=== PATIENT | female | born 1945 | race Caucasian/White ===

== ENCOUNTER 2017-02-17 18:16 | Emergency (ER) | payer OTHER ==
[~2017-02-17] VITALS: Ht 170.2 cm; Wt 77.2 kg
[~2017-02-17 18:16] MED LIST: ASPI-650 PO; FLUT1DIS3 INH; GUAI100L11 PO; TIOT18CA INH
[2017-02-17 19:18] LABS: HEMATOCRIT 43.4 % (34.6-47.8); HEMOGLOBIN 14.7 g/dL (11.7-16.4); WHITE BLOOD COUNT 12.3 x10^3/uL (3.4-10)
[2017-02-17 19:30] LABS: BLOOD UREA NITROGEN 22 mg/dL (7-18)
[2017-02-17 20:47] VITALS: BP 120/47
== END 2017-02-17 20:50 | disposition home or self-care (01) ==
LOC: ED 18:44
DX: J44.9 Chronic obstructive pulmonary disease, unspecified (principal)
CPT/HCPCS: 36415; 71020; 80048; 82040; 85025; 93005; 99285

== ENCOUNTER 2017-12-15 07:03 | Emergency (ER) | payer MEDICARE, OTHER ==
[~2017-12-15] VITALS: Ht 170.2 cm; Wt 76.2 kg
[2017-12-15 07:06] VITALS: BP 162/78
== END 2017-12-15 09:11 | disposition home or self-care (01) ==
LOC: ED 08:51
DX: J18.9 Pneumonia, unspecified organism (principal); J44.9 Chronic obstructive pulmonary disease, unspecified; I48.91 Unspecified atrial fibrillation; I34.1 Nonrheumatic mitral (valve) prolapse
CPT/HCPCS: 71046; 99284

== ENCOUNTER 2020-11-10 05:44 | Emergency (ER) | payer OTHER ==
[~2020-11-10] VITALS: Ht 167.6 cm; Wt 80.0 kg
[~2020-11-10 05:44] MED LIST changes: -ASPI-650 PO; +ASPI325T20 PO
[2020-11-10 06:57] LABS: BASOPHILS % (AUTO) 1 % (0-1); EOSINOPHILS % (AUTO) 3 % (1-7); LYMPHOCYTES % (AUTO) 11 % (22-44); MEAN CORPUSCULAR HEMOGLOBIN 28.5 pg (27.0-34.8); MEAN CORPUSCULAR HGB CONC 33.1 g/dL (32.4-35.8); MEAN PLATELET VOLUME 7.4 fL (7.4-10.4); MONOCYTES % (AUTO) 9 % (2-9); NEUTROPHILS % (AUTO) 76 % (42-75); PLATELET COUNT 346 x10^3/uL (130-400); RED CELL DISTRIBUTION WIDTH 14.5 % (9.6-15.2)
[2020-11-10 07:05] LABS: ALBUMIN 2.9 g/dL (3.4-5.0); ANION GAP 6 mmol/L (5-15); CALCIUM 9.4 mg/dL (8.5-10.1); CHLORIDE 101 mmol/L (98-107)
[2020-11-10 07:11] LABS: CREATININE 0.63 mg/dL (0.55-1.02); TROPONIN I < 0.015 ng/mL (0.000-0.045)
--- NOTE | 2020-11-10 07:23 | NUR ---
THIS IS A 74 YEAR OLD FEMALE WHO WAS BIB AMBULANCE DUE TO COUGHING UP BLOOD. PT HAD RIGHT LWOER LUNG RESECTION X 5 DAYS AGO. PT IS ON OXGYEN AT 6LNC, 87% ON 4LNC AT 87%. PLACED PT ON REPORT SPECIALIST , HX OF COPD AND AFIB, CONTINOUS SP02 AND CYCLE VS. DISCUSSED PLAN OF CARE
[2020-11-10 07:31] LABS: INTERNATIONAL NORMALIZED RATIO 0.99 (0.93-1.1); PROTHROMBIN TIME 10.6 Seconds (9.6-11.5)
--- NOTE | 2020-11-10 08:02 | NUR ---
NO IV FOR CTA, PLACING IV IN A FEW MINUTES
[2020-11-10] MEDS ORDERED: OMNIPAQUE 350 MG/ML, 75ML BOTTLE ONE (08:15)
--- NOTE | 2020-11-10 09:43 | NUR ---
PT RESTING, INCONTIENT OF URINE, CLEANED WELL. VERBALIZED NO ADDITIONAL NEEDS AT THIS TIME
[2020-11-10] MEDS ORDERED: ONDANSETRON 2MG/ML, 2ML ONE (10:21)
[2020-11-10] MEDS ORDERED: ONDANSETRON 2MG/ML, 2ML IVPush ONE (10:30)
--- NOTE | 2020-11-10 10:46 | NUR ---
DISCHARGE UP, PT WOULD LIKE TO REST A BIT BEFORE ATTEMPTING TO AMBULATE.
[2020-11-10 11:49] VITALS: BP 105/55
--- NOTE | 2020-11-10 11:53 | NUR ---
JOYA RIZO DAUGHTER PICKED UP WITH OXYGEN TANK. DISCHARGE REVIEWED
== END 2020-11-10 12:01 | disposition home or self-care (01) ==
LOC: ED 10:24
DX: R04.2 Hemoptysis (principal); R06.02 Shortness of breath; I48.91 Unspecified atrial fibrillation; J44.9 Chronic obstructive pulmonary disease, unspecified; F17.200 Nicotine dependence, unspecified, uncomplicated
CPT/HCPCS: 36415; 71275; 80048; 82040; 83880; 84484; 85025; 85610; 85730; 93005; 96374; 99285; J2405; Q9967